=== PATIENT | male | born 1940 | race Two or more races ===

== ENCOUNTER 2019-02-08 10:16 | Emergency (ER) | payer OTHER ==
[2019-02-08 10:23] VITALS: TEMP 97.5; BMI 26.5
--- NOTE | 2019-02-08 10:41 | PDOC ---
History of Present Illness - General Chief Complaint: Lightheaded Stated Complaint: ONE MONTH DIZZY Time Seen by Provider: 02/08/19 10:28 - History of Present Illness Initial Comments: The pt is a 78M w/ a reported history of HTN and CKD who presents for evaluation of 1 month of intermittent lightheadedness. He denies the room spinning. He reports that he should be taking his Norvasc but Symptoms are worse with sitting/standing. Denies falls/LOC. He denies chest pain, trouble breathing, N/V/C/D, abdominal pain, dysuria, hematuria, blood in his stool, or changes in sensation. Meds: Norvasc (taken intermittently) PSH: Denies Allergies: Denies SH: Social EtOH, Denies tobacco and illicit drug use 02/08/19 11:01 Past History - Past Medical History Allergies/Adverse Reactions: Allergies Allergy/AdvReac Type Severity Reaction Status Date / Time No Known Allergies Allergy Verified 02/08/19 10:23 Home Medications: Ambulatory Orders Amlodipine Besylate [Norvasc -] 5 mg PO DAILY 02/08/19 Amlodipine Besylate [Norvasc -] 5 mg PO DAILY #14 tablet 02/08/19 Ranitidine [Zantac -] 150 mg PO DAILY 02/08/19 COPD: No Other medical history: kidney - Suicide/Smoking/Psychosocial Hx Smoking History: Never smoked Review of Systems - Review of Systems Able to Perform ROS?: Yes Comments:: GENERAL/CONSTITUTIONAL: No fever or chills HEAD, EYES, EARS, NOSE AND THROAT: No change in vision. No ear pain or discharge. No sore throat CARDIOVASCULAR: No chest pain or shortness of breath RESPIRATORY: Denies cough, hemoptysis GASTROINTESTINAL: No nausea, vomiting, diarrhea or constipation GENITOURINARY: No dysuria, frequency, or change in urination MUSCULOSKELETAL: No joint or muscle swelling or pain. No neck or back pain SKIN: No rash NEUROLOGIC: No headache, loss of consciousness, or change in strength/sensation ENDOCRINE: No increased thirst. No abnormal weight change HEMATOLOGIC/LYMPHATIC: No anemia, easy bleeding, or history of blood clots ALLERGIC/IMMUNOLOGIC: No hives or skin allergy 02/08/19 10:41 Is the patient limited Setswana proficient: No *Physical Exam - Vital Signs Last Vital Signs Temp Pulse Resp BP Pulse Ox 97.5 F L 52 L 18 186/87 H 98 02/08/19 10:20 02/08/19 10:20 02/08/19 10:20 02/08/19 10:20 02/08/19 10:20 - Physical Exam Comments: GENERAL: Awake, alert, and oriented to person/place/time, in no acute distress HEAD: No signs of trauma, normocephalic, atraumatic EYES: PERRLA, EOMI, sclera anicteric, conjunctiva clear ENT: Hearing grossly normal, nares patent, oropharynx clear without exudates. No uvular deviation. Moist mucosa LUNGS: No distress, speaks in full sentences, clear to auscultation bilaterally HEART: Regular rate and rhythm, normal S1 and S2, no murmurs appreciated, peripheral pulses normal and equal bilaterally ABDOMEN: Soft, nontender, normoactive bowel sounds. No guarding, no rebound EXTREMITIES: Normal inspection, Normal range of motion, no edema. No clubbing or cyanosis NEUROLOGICAL: Cranial nerves II through XII grossly intact. Normal speech, normal gait, no focal sensorimotor deficits SKIN: Warm, Dry 02/08/19 10:41 ED Treatment Course - LABORATORY CBC & Chemistry Diagram: 02/08/19 11:10 02/08/19 11:10 Medical Decision Making - Medical Decision Making The pt is a 78M w/ a reported history of HTN and CKD who presents for evaluation of 1 month of intermittent lightheadedness. ED Course Labs sent ECG CXR CT head Lytes wnl No anemia No leukocytosis Cr 1.6 but reported CKD LFTs unremarkable Trop I neg CXR and CT head w/o acute pathology 02/08/19 12:48 Pt feels improved s/p IVF Rx for home Norvasc Plan for D/C w/ PCP and Cards f/u Discharge instructions and return precautions given Pt in agreement and verbalized understanding Dispo: home 02/08/19 15:43 *DC/Admit/Observation/Transfer Diagnosis at time of Disposition: Lightheadedness Hypertension Qualifiers: Hypertension type: unspecified Qualified Code(s): I10 - Essential (primary) hypertension - Discharge Dispostion Disposition: HOME Condition at time of disposition: Improved Decision to Admit order: No - Prescriptions Prescriptions: Amlodipine Besylate [Norvasc -] 5 mg PO DAILY #14 tablet - Referrals Referrals: Alex Shearer MD [Staff Physician] - - Patient Instructions Printed Discharge Instructions: Essential Hypertension Additional Instructions: You were seen in the Emergency Department for evaluation of lightheadedness and high blood pressure. Be sure to take your Norvasc every day. Follow up with the primary care provider referral given and be sure to discuss you blood pressure as well as your intermittent lightheadedness. Review the handout provided at discharge. Return to the Emergency Department if you develop fevers/chills, chest pain, trouble breathing, abdominal pain, nausea/vomiting, worsening symptoms, or new/concerning symptoms. Your creatinine was also elevated to 1.6 and can be a sign of decreased kidney function, be sure to tell your primary care doctor about this as well. Se lo atendi en el Departamento de Emergencias para evaluar el mareo y la presin arterial wilfrido. Asegrese de henry montero Norvasc todos los pandey. Nehal un seguimiento con la derivacin del proveedor de atencin primaria y asegrese de analizar montero presin arterial y montero mareo intermitente. Revise el folleto provisto al momento del wilfrido. Regrese al Departamento de Emergencias si presenta fiebre / escalofros, dolor en el pecho, dificultad para respirar, dolor abdominal, nuseas / vmitos, empeoramiento de los sntomas o sntomas nuevos / relacionados. Montero creatinina tambin se elev a 1.6 y puede ser un signo de disminucin de la funcin renal, asegrese de informar a montero mdico de atencin primaria sobre esto tambin. - Post Discharge Activity
--- NOTE | 2019-02-08 10:56 | PDOC ---
Attending Attestation - Resident Resident Name: Mark Mclain - ED Attending Attestation I have performed the following: I have examined & evaluated the patient, The case was reviewed & discussed with the resident, I agree w/resident's findings & plan - [facility] HPI: 02/08/19 12:32 Reyna 78 YOF with h/o HTN, GERD and CKD Presenting with dizziness/ lightheadedness x 1 month, intermittent, sometimes a/w achy temporal DRAPER. exacerbated with movement, standing and position changes. Took norvasc today. No cp, sob, n/v. No vertigo - Physicial Exam PE: 02/08/19 12:32 Agree with the resident's HPI and PE as documented in the electronic medical record. NAD, EOMI, PERRL, MMM, nl conjunctiva, anicteric; neck supple. lungs clear, RRR , abdomen soft nontender. Back nontender. MOLINA x4, no focal neuro deficits. No peripheral edema. normal color for ethnicity, WWP. - Medical Decision Making 02/08/19 12:32 See HPI for details. Prior notes reviewed, including admissions, discharges and consultations. Vital signs reviewed, hypertensive 186/87, normal HR and afebrile, no respiratory distress, sinus jae. DDX hypertensive urgency, end organ damage, worsening renal insufficiency, ACS, arrhythmia, angina, htn encephalopathy, infection, orthostatics, medication side effect. laboratory results and imaging reviewed, basic labs and lytes wnl, notable for elevated Cr, c/w prior dx of CKD LFTs/wnl UA_wnl, no protein or blood CXR_no acute chest pathology Cardiac panel_neg trop EKG sinus bradycardia 49 bpm, no interval abnormalities, narrow QRS, ST and T wave segments and morphology normal. CT head unremarkable, no CVA or bleed/mass. ED course no events, well appearing, ambulatory f/u indicated for his essential HTN and clinical recheck as well as Cr function no e/o end organ damage acutely, so no further meds to be given for risk of side effects instructions on compliance etiology of sx and HTN management. repeat BP improved, 130/77, no symptoms, tacos PO Pt to be discharged in stable condition. Patient and family made aware of clinical impression, treatment recommendations and disposition plan, return precautions discussed (including but not limited to new or persistent/worsening symptoms, pain, fevers, or signs of infection, chest pain, respiratory distress , inability to tolerate oral intake, dehydration, syncope, or neurologic changes ). Follow up with PMD - referrals given, as recommended, follow up information provided, take medications as instructed for duration of time. continue with supportive care, avoid triggers and precipitants. All questions answered to patient's satisfaction and expressed understanding and comfort with this. At the time of discharge, the patient is alert, clinically improved, tolerating po and verbalizes understanding of instructions, satisfied with the care received and felt comfortable with the plan. Patient does not suffer from an acute life- threatening medical condition at this time and is safe for outpatient follow- up. 02/08/19 12:33 02/08/19 12:33 02/08/19 12:34 02/08/19 12:44 02/08/19 12:46 Heart Score/ECG Review #1 ECG reviewed & interpreted by me at: 10:55 General ECG Interpretation: Sinus Rhythm, Normal Intervals Compared to previous ECG there are: Previous ECG unavail 02/08/19 11:12 EKG sinus bradycardia 49 bpm, no interval abnormalities, narrow QRS, ST and T wave segments and morphology normal.
[2019-02-08] MEDS ORDERED: LACTATED RINGERS SOLUTION 1000 ML INFUS.BAG IV ONE (11:05)
[2019-02-08 11:31] LABS: PH,URINE 5.5 (5.0-8.0); URINE APPEARANCE CLEAR; URINE BILIRUBIN NEGATIVE (NEGATIVE); URINE COLOR YELLOW; URINE GLUCOSE (UA) NEGATIVE (NEGATIVE); URINE KETONE NEGATIVE (NEGATIVE); URINE LEUK ESTERASE NEGATIVE (NEGATIVE); URINE NITRITE NEGATIVE (NEGATIVE); URINE PROTEIN NEGATIVE (NEGATIVE)
[2019-02-08 11:34] LABS: BASO % 0.5 % (0-2.0); EOS % 2.8 % (0-4.5); HEMOGLOBIN 13.1 GM/dL (11.7-16.9); LYMPH % 32.6 % (8-40); MCH 31.7 pg (25.7-33.7); MCHC 33.7 g/dl (32.0-35.9); MEAN CELL VOLUME 94.2 fl (80-96); MEAN PLT VOLUME 8.8 fl (7.5-11.1); MONO % 7.9 % (3.8-10.2); NEUT % 56.2 % (42.8-82.8); RBC 4.14 M/mm3 (4.00-5.60); RDW 14.7 % (11.9-15.9)
[2019-02-08 11:35] LABS: PLATELET COUNT 194 K/MM3 (134-434)
[2019-02-08 11:54] LABS: ALBUMIN 3.4 g/dl (3.4-5.0); ALK PHOS 53 U/L (45-117); ANION GAP 4 MMOL/L (8-16); BILIRUBIN,TOTAL 0.5 mg/dL (0.2-1); BLOOD UREA NITROGEN 16.9 mg/dL (7-18); CALCIUM 8.8 mg/dL (8.5-10.1); CHLORIDE 108 mmol/L (98-107); CO2 30 mmol/L (21-32); CREATININE 1.6 mg/dL (0.55-1.3); GLUCOSE,RANDOM 89 mg/dL (74-106); POTASSIUM 4.4 mmol/L (3.5-5.1); SGOT/AST 12 U/L (15-37); SGPT/ALT 19 U/L (13-61); SODIUM 142 mmol/L (136-145); TOT PROT 6.8 g/dl (6.4-8.2)
[2019-02-08 12:47] VITALS: BP 130/77; PULSE 55
--- NOTE | 2019-02-10 00:27 | EKG ---
Test Reason : Blood Pressure : / mmHG Vent. Rate : 049 BPM Atrial Rate : 049 BPM P-R Int : 162 ms QRS Dur : 104 ms QT Int : 460 ms P-R-T Axes : 065 042 066 degrees QTc Int : 415 ms SINUS BRADYCARDIA OTHERWISE NORMAL ECG NO PREVIOUS ECGS AVAILABLE Confirmed by MD Omari, Noé ([id number]) on 02/10/2019 12:26:42 AM Referred By: Confirmed By:Noé Salcido MD
== END 2019-02-08 13:50 | disposition home or self-care (01) ==
LOC: JER 10:16
PROC: 3E0337Z Introduction of Electrolytic and Water Balance Substance into Peripheral Vein, Percutaneous Approach (ICD-10-PCS; principal; 2019-02-08)
DX: R42 Dizziness and giddiness (principal); I12.9 Hypertensive chronic kidney disease with stage 1 through stage 4 chronic kidney disease, or unspecified chronic kidney disease; N18.9 Chronic kidney disease, unspecified
CPT/HCPCS: 36415; 70450-TC; 71045-TC-FY; 80053; 81003; 84484; 85025; 93005; 93010; 99285-25

== ENCOUNTER 2019-04-22 13:05 | Emergency (ER) | payer OTHER | END 2019-04-22 15:36 | disposition home or self-care (01) | LOC: JER 13:05 ==

== ENCOUNTER 2020-09-16 20:33 | Emergency (ER) | payer OTHER ==
[2020-09-16 20:53] VITALS: BP 131/78; PULSE 90; TEMP 99.4; BMI 26.5
== END 2020-09-16 22:27 | disposition home or self-care (01) ==
LOC: JER 20:33
DX: U07.1 COVID-19 (principal); R05 Cough; Z11.52 Encounter for screening for COVID-19
CPT/HCPCS: 71046-TC-FY; 99284-25; C9803; U0003

== ENCOUNTER 2021-08-03 14:45 | Emergency (ER) | payer OTHER ==
[2021-08-03 15:05] VITALS: BP 129/69; PULSE 70; TEMP 97.9; BMI 25.8
[2021-08-03] MEDS ORDERED: guaiFENesin 200 MG/10 ML 10 ML UNIT-DOSE CUPS PO ONE (20:57)
[2021-08-03] MEDS ORDERED: guaiFENesin/D-METHORPHAN HB 10 ML UNIT-DOSE CUPS ONE (21:02)
== END 2021-08-03 22:32 | disposition home or self-care (01) ==
LOC: JER 14:45
DX: J06.9 Acute upper respiratory infection, unspecified (principal)
CPT/HCPCS: 71046-TC-FY; 87804; 99284-25; C9803; U0003; U0005

== ENCOUNTER 2022-09-30 14:09 | Emergency (ER) | payer OTHER ==
[2022-09-30 14:18] VITALS: RESP 19; BMI 26.4
[2022-09-30] MEDS ORDERED: METOCLOPRAMIDE HCL INJECTION 10 MG/2 ML VIAL IVPUSH ONE (15:34)
[2022-09-30] MEDS ORDERED: ACETAMINOPHEN 1000 MG/100 ML BAG IVPB ONE (15:45)
[2022-09-30] MEDS ORDERED: ACETAMINOPHEN INJECTION 100 ML IVPB ONE (16:01)
[2022-09-30] MEDS ORDERED: METOCLOPRAMIDE HCL INJECTION 10 MG/2 ML VIAL ONE (16:01)
[2022-09-30 16:02] LABS: BASO % 0.9 % (0-2.0); EOS % 2.8 % (0-4.5); HEMATOCRIT 42.8 % (35.4-49); HEMOGLOBIN 14.8 GM/dL (11.7-16.9); LYMPH % 28.3 % (8-40); MCH 32.5 pg (25.7-33.7); MCHC 34.6 g/dl (32.0-35.9); MEAN CELL VOLUME 94.1 fl (80-96); MEAN PLT VOLUME 8.3 fl (7.5-11.1); MONO % 8.5 % (3.8-10.2); NEUT % 59.5 % (42.8-82.8); PLATELET COUNT 205 10^3/uL (134-434); RBC 4.55 M/mm3 (4.00-5.60); RDW 14.4 % (11.9-15.9); WHITE BLOOD COUNT 8.5 K/mm3 (4.0-10.0)
[2022-09-30 16:27] LABS: CALCIUM 9.1 mg/dL (8.5-10.1)
[2022-09-30 16:28] LABS: ALBUMIN 3.8 g/dl (3.4-5.0); BLOOD UREA NITROGEN 22.2 mg/dL (7-18); MAGNESIUM 2.3 mg/dL (1.8-2.4)
[2022-09-30 16:30] LABS: CREATININE 1.6 mg/dL (0.55-1.3)
[2022-09-30 16:31] LABS: PHOSPHOROUS 3.3 mg/dL (2.5-4.9)
[2022-09-30 16:32] LABS: TOT PROT 7.6 g/dl (6.4-8.2)
[2022-09-30 16:38] LABS: BILIRUBIN,TOTAL 0.6 mg/dL (0.2-1)
[2022-09-30 17:28] VITALS: BP 123/69; PULSE 60; TEMP 97.8
[2022-09-30 18:52] LABS: URINE APPEARANCE CLEAR; URINE BILIRUBIN NEGATIVE (NEGATIVE); URINE COLOR YELLOW; URINE GLUCOSE (UA) NEGATIVE (NEGATIVE); URINE KETONE TRACE (NEGATIVE); URINE LEUK ESTERASE NEGATIVE (NEGATIVE); URINE NITRITE NEGATIVE (NEGATIVE); URINE PROTEIN NEGATIVE (NEGATIVE)
== END 2022-09-30 19:46 | disposition home or self-care (01) ==
LOC: JER 14:09
PROC: 3E033GC Introduction of Other Therapeutic Substance into Peripheral Vein, Percutaneous Approach (ICD-10-PCS; principal; 2022-09-30)
DX: R42 Dizziness and giddiness (principal)
CPT/HCPCS: 0241U-QW; 36415; 70450-TC; 71046-TC-FY; 80053; 81003; 83735; 84100; 84484; 85025; 87086; 93005; 93010; 99285-25

== ENCOUNTER 2023-01-05 13:00 | Emergency (ER) | payer OTHER ==
[2023-01-05 13:18] VITALS: BP 143/66; PULSE 61; RESP 18; TEMP 97.9; BMI 26.5
[2023-01-05] MEDS ORDERED: ACETAMINOPHEN 325 MG TABLET (FP) PO ONE (15:10)
[2023-01-05] MEDS ORDERED: ACETAMINOPHEN 500 MG TABLET (FP) ONE (15:11)
[2023-01-05 15:39] LABS: BASO % 0.8 % (0-2.0); EOS % 2.9 % (0-4.5); HEMOGLOBIN 14.1 GM/dL (11.7-16.9); LYMPH % 25.2 % (8-40); MCH 31.5 pg (25.7-33.7); MCHC 34.4 g/dl (32.0-35.9); MEAN CELL VOLUME 91.7 fl (80-96); MEAN PLT VOLUME 9.2 fl (7.5-11.1); MONO % 8.7 % (3.8-10.2); NEUT % 62.4 % (42.8-82.8); PLATELET COUNT 188 10^3/uL (134-434); RBC 4.47 M/mm3 (4.00-5.60)
[2023-01-05 16:37] LABS: POTASSIUM 4.7 mmol/L (3.5-5.1)
[2023-01-05 16:39] LABS: ALBUMIN 3.5 g/dl (3.4-5.0); BLOOD UREA NITROGEN 20.5 mg/dL (7-18); CALCIUM 9.1 mg/dL (8.5-10.1)
[2023-01-05 16:42] LABS: CREATININE 1.2 mg/dL (0.55-1.3)
[2023-01-05 16:44] LABS: BILIRUBIN,TOTAL 0.6 mg/dL (0.2-1); TOT PROT 7.4 g/dl (6.4-8.2)
[2023-01-05] MEDS ORDERED: SODIUM CHLORIDE 0.9% 500 ML INFUS.BAG IV ONE (17:05)
== END 2023-01-05 18:17 | disposition home or self-care (01) ==
LOC: JERFT 13:00
DX: R25.2 Cramp and spasm (principal); R05.9 Cough, unspecified
CPT/HCPCS: 36415; 71046-TC-FY; 80053; 85025; 99284-25

== ENCOUNTER 2024-01-29 17:21 | Emergency (ER) | payer OTHER ==
[2024-01-29 17:31] VITALS: BP 129/70; PULSE 73; RESP 18; TEMP 98.6; BMI 25.1
[2024-01-29] MEDS ORDERED: ACETAMINOPHEN 325 MG TABLET (FP) ONE (18:54)
[2024-01-29] MEDS: ACETAMINOPHEN 325 MG TABLET (FP) PO ONE (18:59)
== END 2024-01-29 20:09 | disposition home or self-care (01) ==
LOC: JERFT 17:21
DX: M25.511 Pain in right shoulder (principal); W01.0XXA Fall on same level from slipping, tripping and stumbling without subsequent striking against object, initial encounter
CPT/HCPCS: 73030-TC-RT-FY; 73060-TC-RT-FY; 99283-25

== ENCOUNTER 2024-08-08 06:43 | Emergency (ER) | payer OTHER ==
[2024-08-08 07:17] VITALS: BP 126/71; PULSE 72; RESP 18; TEMP 98.4; BMI 25.1
[2024-08-08] MEDS ORDERED: guaiFENesin/D-METHORPHAN HB 10 ML UNIT-DOSE CUPS ONE (07:58)
[2024-08-08] MEDS: guaiFENesin/D-METHORPHAN HB 10 ML UNIT-DOSE CUPS PO ONE (08:05)
== END 2024-08-08 09:20 | disposition home or self-care (01) ==
LOC: JER 06:43
DX: R05.9 Cough, unspecified (principal); Z20.822 Contact with and (suspected) exposure to COVID-19
CPT/HCPCS: 0241U-QW; 71046-TC-FY; 99283-25

== ENCOUNTER 2024-10-15 07:38 | Emergency (ER) | payer OTHER ==
[2024-10-15] MEDS ORDERED: ASPIRIN 81 MG CHEWABLE TABLETS PO ONE (07:57)
[2024-10-15] MEDS ORDERED: CLOPIDOGREL BISULFATE 300 MG TABLET ONE (08:13)
[2024-10-15] MEDS ORDERED: ASPIRIN 325 MG TABLET ONE (08:13)
[2024-10-15] MEDS ORDERED: HEPARIN INFUSION - 25,000 UNITS/500 ML INFUS.BAG IVPB ONE (08:14)
[2024-10-15] MEDS ORDERED: HEPARIN NA (PORCINE) 5,000 UNITS/ML 1ML VIAL ONE (08:14)
[2024-10-15 08:21] VITALS: BMI 31.8
[2024-10-15] MEDS: HEPARIN NA (PORCINE) 5,000 UNITS/ML 1ML VIAL IVPUSH ONE (08:23)
[2024-10-15] MEDS: CLOPIDOGREL BISULFATE 300 MG TABLET PO ONE (08:23)
[2024-10-15] MEDS: ASPIRIN 81 MG CHEWABLE TABLETS PO ONE (08:23)
[2024-10-15] MEDS: HEPARIN - 25,000 UNIT in SODIUM CHLORIDE 495 ML IV SCH (08:24)
[2024-10-15 08:32] LABS: INR 1.08 (0.83-1.09); PROTHROMBIN TIME (PATIENT) 11.8 SEC (9.7-13.0)
[2024-10-15 08:34] LABS: ACTIVATED PTT 26.2 SECONDS (25.2-36.5)
[2024-10-15 08:43] LABS: POTASSIUM 4.2 mmol/L (3.5-5.1)
[2024-10-15 08:45] LABS: ALBUMIN 3.8 g/dl (3.4-5.0); CALCIUM 9.5 mg/dL (8.5-10.1)
[2024-10-15 08:46] LABS: BLOOD UREA NITROGEN 18.9 mg/dL (7-18); MAGNESIUM 2.2 mg/dL (1.8-2.4)
[2024-10-15 08:49] LABS: CREATININE 1.5 mg/dL (0.55-1.3)
[2024-10-15 08:50] LABS: BILIRUBIN,TOTAL 0.8 mg/dL (0.2-1); TOT PROT 7.6 g/dl (6.4-8.2)
[2024-10-15 09:07] VITALS: BP 178/88; PULSE 52; RESP 20; TEMP 98
[2024-10-15 10:03] LABS: BASO % 0.4 % (0-2.0); EOS % 1.7 % (0-4.5); HEMOGLOBIN 14.7 GM/dL (11.7-16.9); LYMPH % 29.6 % (8-40); MCH 31.3 pg (25.7-33.7); MCHC 34.1 g/dl (32.0-35.9); MEAN CELL VOLUME 91.6 fl (80-96); MEAN PLT VOLUME 9.3 fl (7.5-11.1); MONO % 5.8 % (3.8-10.2); NEUT % 62.5 % (42.8-82.8); PLATELET COUNT 201 10^3/uL (134-434); RBC 4.69 M/mm3 (4.00-5.60); RDW 14.7 % (11.9-15.9); WHITE BLOOD COUNT 13.2 K/mm3 (4.0-10.0)
== END 2024-10-15 09:13 | disposition short-term general hospital (02) ==
LOC: JER 07:38
PROC: 3E033GC Introduction of Other Therapeutic Substance into Peripheral Vein, Percutaneous Approach (ICD-10-PCS; principal; 2024-10-15)
DX: I21.11 ST elevation (STEMI) myocardial infarction involving right coronary artery (principal); R07.89 Other chest pain
CPT/HCPCS: 36415; 71045-TC-FY; 80053; 83735; 84484; 85025; 85610; 85730; 86850; 86900; 86901; 93005; 93010; 99285-25; J1644

== ENCOUNTER 2024-12-10 07:18 | Observation (INO) | payer OTHER ==
[2024-12-10] MEDS ORDERED: ACETAMINOPHEN INJECTION 100 ML ONE (08:30)
[2024-12-10 08:38] LABS: ABSOLUTE IMMATURE GRANULOCYTES 0.03 x10^3/uL (0.0-0.031); BASOPHILS # 0.05 x10^3/uL (0.01-0.08); EOSINOPHIL % 0.6 % (0.8-7.0); EOSINOPHILS # 0.06 x10^3/uL (0.04-0.54); HEMATOCRIT 41.1 % (40.1-51.0); HEMOGLOBIN 13.3 g/dL (13.7-17.5); MCHC 32.4 g/dl (32.3-36.5); MEAN CELL VOLUME 93.4 fl (79.0-92.2); MEAN PLT VOLUME 10.6 fl (9.4-12.4); MONOCYTE # 0.55 x10^3/uL (0.30-0.82); MONOCYTE % 5.7 % (5.3-12.2); PLATELET COUNT 188 x10^3/uL (163-337); RDW 13.9 % (12.6-16.6)
[2024-12-10] MEDS: SODIUM CHLORIDE 500 ML IV STA (08:44)
[2024-12-10] MEDS: ACETAMINOPHEN 1000 MG/100 ML BAG IVPB ONE (08:44)
[2024-12-10 08:49] LABS: POTASSIUM 3.9 mmol/L (3.5-5.1)
[2024-12-10 08:51] LABS: ALBUMIN 3.8 g/dl (3.4-5.0); CALCIUM 9.5 mg/dL (8.5-10.1)
[2024-12-10 08:52] LABS: BLOOD UREA NITROGEN 19.6 mg/dL (7-18)
[2024-12-10 08:55] LABS: CREATININE 1.4 mg/dL (0.55-1.3)
[2024-12-10 08:56] LABS: BILIRUBIN,TOTAL 0.8 mg/dL (0.2-1); TOT PROT 7.3 g/dl (6.4-8.2)
[2024-12-10 09:35] LABS: PH,URINE 5.5 (5.0-8.0); URINE APPEARANCE CLEAR; URINE BILIRUBIN NEGATIVE (NEGATIVE); URINE COLOR YELLOW; URINE GLUCOSE (UA) NEGATIVE (NEGATIVE); URINE KETONE NEGATIVE (NEGATIVE); URINE LEUK ESTERASE NEGATIVE (NEGATIVE); URINE NITRITE NEGATIVE (NEGATIVE); URINE PROTEIN NEGATIVE (NEGATIVE)
[2024-12-10] MEDS: PANTOPRAZOLE 40 MG TABLET PO SCH (12:39)
[2024-12-10] MEDS: metoPROLOL SUCCINATE 25 MG TAB.SR.24H (FP) PO SCH (12:39)
[2024-12-10] MEDS: CLOPIDOGREL BISULFATE 75 MG TABLET (FP) PO SCH (12:39)
[2024-12-10] MEDS: ISOSORBIDE MONONITRATE 30 MG TAB.SR.24H (FP) PO SCH (12:39)
[2024-12-10] MEDS: APIXABAN 2.5 MG TABLET PO SCH (12:39)
[2024-12-10 13:08] LABS: HIV INTERPRETATION NEGATIVE (NEGATIVE)
[2024-12-10 13:09] LABS: HCV DIAGNOSTIC IN-HOUSE W/RFLX NON-REACTIVE (NONREACTIVE)
[2024-12-10 13:26] VITALS: BMI 25.7
[2024-12-10] MEDS: ACETAMINOPHEN 325 MG TABLET (FP) PO PRN (17:56)
[2024-12-10] MEDS: ATORVASTATIN CA 80 MG TABLET (FP) PO SCH (21:47)
[2024-12-11 08:33] LABS: ABSOLUTE IMMATURE GRANULOCYTES 0.03 x10^3/uL (0.0-0.031); BASOPHILS # 0.04 x10^3/uL (0.01-0.08); EOSINOPHIL % 3.2 % (0.8-7.0); EOSINOPHILS # 0.21 x10^3/uL (0.04-0.54); HEMATOCRIT 36.6 % (40.1-51.0); MCHC 32.8 g/dl (32.3-36.5); MEAN CELL VOLUME 92.9 fl (79.0-92.2); MEAN PLT VOLUME 10.6 fl (9.4-12.4); MONOCYTE # 0.72 x10^3/uL (0.30-0.82); MONOCYTE % 10.9 % (5.3-12.2); PLATELET COUNT 154 x10^3/uL (163-337); RDW 14.1 % (12.6-16.6)
[2024-12-11 09:16] LABS: POTASSIUM 3.7 mmol/L (3.5-5.1)
[2024-12-11 09:18] LABS: ALBUMIN 3.1 g/dl (3.4-5.0); CALCIUM 8.8 mg/dL (8.5-10.1)
[2024-12-11 09:19] LABS: BLOOD UREA NITROGEN 17.5 mg/dL (7-18)
[2024-12-11 09:21] LABS: CREATININE 1.2 mg/dL (0.55-1.3)
[2024-12-11 09:22] LABS: PHOSPHOROUS 2.6 mg/dL (2.5-4.9)
[2024-12-11 09:23] LABS: BILIRUBIN,TOTAL 0.6 mg/dL (0.2-1); TOT PROT 6.2 g/dl (6.4-8.2)
[2024-12-11] MEDS: guaiFENesin 600 MG TABLET.ER (FP) PO SCH (10:30)
[2024-12-11] MEDS: CHOLECALCIFEROL (VIT D3) 1,000 UNIT (25 MCG) TABLET PO SCH (13:46)
[2024-12-11] MEDS: ASCORBIC ACID 500 MG TABLET (FP) PO SCH (13:46)
[2024-12-11] MEDS: BENZONATATE 200 MG CAPSULE PO PRN (14:33)
[2024-12-11 14:47] VITALS: BP 147/72; PULSE 61; RESP 18; TEMP 98.2
== END 2024-12-11 17:01 | disposition home or self-care (01) ==
LOC: JER 07:18 → JERBED 10:10 → J8W 10:58
PROVIDERS: ADMIT Internal Medicine; ATTEND Nurse Practitioner Acute Care
PROC: 3E033NZ Introduction of Analgesics, Hypnotics, Sedatives into Peripheral Vein, Percutaneous Approach (ICD-10-PCS; principal; 2024-12-10)
PROC: 3E0337Z Introduction of Electrolytic and Water Balance Substance into Peripheral Vein, Percutaneous Approach (ICD-10-PCS; 2024-12-10)
DX: U07.1 COVID-19 (principal); I11.9 Hypertensive heart disease without heart failure; E78.5 Hyperlipidemia, unspecified; K21.9 Gastro-esophageal reflux disease without esophagitis
CPT/HCPCS: 0241U-QW; 36415; 71046-TC-FY; 80053; 81003; 83735; 84100; 85025; 86803; 87086; 87389; 93005; 93010; 96361; 96374; 97116-GP; 97161-GP; 99285-25; G0378; J0131

== ENCOUNTER 2025-01-11 12:34 | Emergency (ER) | payer OTHER ==
[2025-01-11 13:00] VITALS: BP 121/82; PULSE 58; RESP 18; TEMP 97; BMI 23.6
== END 2025-01-11 14:43 | disposition home or self-care (01) ==
LOC: JER 12:34
DX: R05.1 Acute cough (principal); R09.3 Abnormal sputum; R00.1 Bradycardia, unspecified
CPT/HCPCS: 71046-TC-FY; 93005; 93010; 99284-25